=== PATIENT | female | born 1965 | race Caucasian/White ===

== ENCOUNTER 2019-06-16 00:18 | Inpatient (IN) | payer MEDICARE, OTHER ==
[2019-06-16] MEDS ORDERED: HYDROcodone/Acetaminophen 5/325 mg Tablet PO PRN (01:57)
[2019-06-16] MEDS ORDERED: Acetaminophen 325 MG TAB PO PRN (01:57)
[2019-06-16] MEDS ORDERED: Ondansetron PF 4 MG/2 ML Vial IVP PRN (01:57)
[2019-06-16] MEDS ORDERED: Sodium Chloride 0.9% 1,000 ML IV SCH (02:00)
[2019-06-16] MEDS ORDERED: Morphine 2 MG/ML SYRINGE SLOW IVP PRN (02:01)
[2019-06-16] MEDS ORDERED: Promethazine HCl 25 MG/ML VIAL IM PRN (02:02)
[2019-06-16 02:27] LABS: #Basophils 0.1 thou/uL (0.0-0.2); #Eosinphils 0.2 thou/uL (0.0-0.7); #Lymphocytes 3.6 thou/uL (1.20-3.40); #Monocytes 0.7 thou/uL (0.11-0.59); #Neutrophils 3.4 thou/uL (1.40-6.50); %Basophils 1.2 % (0.0-1.0); %Eosinophils 2.2 % (0.0-10.0); %Lymphocytes 45.5 % (21.0-51.0); %Monocytes 8.3 % (0.0-10.0); %Neutrophils 42.8 % (42.0-75.0); Hemoglobin 15.2 g/dL (12.0-16.0); Mean Corpuscular HGB CONC 34.1 g/dL (32.0-36.0); Mean Corpuscular Hemoglobin 31.9 pg (27.0-31.0); Mean Corpuscular Volume 93.6 fL (78.0-98.0); Mean Platelet Volume 7.3 fL (7.4-10.4); Platelet Count 257 thou/uL (130-400); RBC Distribution Width 12.7 % (11.5-14.5); Red Blood Cell (RBC) Count 4.77 mill/uL (4.20-5.40)
[2019-06-16] MEDS ORDERED: hydrALAZINE 20 MG/ML VIAL SLOW IVP PRN (02:29)
[2019-06-16 02:30] LABS: PTT 34.4 SEC (22.9-36.1); Prothrombin Time 12.8 SEC (12.0-14.7)
[2019-06-16] MEDS ORDERED: Labetalol HCl 100 MG/20 ML VIAL SLOW IVP PRN (02:30)
[2019-06-16 02:41] LABS: Anion Gap 12 mmol/L (10-20); BUN (Urea Nitrogen) 11 mg/dL (9.8-20.1); Calc. Creatinine Clearance 0 mL/min (70-130); Calcium 9.6 mg/dL (7.8-10.44); Carbon Dioxide 28 mmol/L (22-29); Chloride 99 mmol/L (98-107); Estimated GFR-MDRD 71; Glucose 84 mg/dL (70-105); Potassium 4.1 mmol/L (3.5-5.1); Sodium 135 mmol/L (136-145)
--- NOTE | 2019-06-16 02:49 | HP ---
HISTORY OF PRESENT ILLNESS: The patient is a 53-year-old female with a past medical history of hypertension, hyperlipidemia, chronic back pain, followed by Dr. Lee for a 4-mm right MCA bifurcation aneurysm. She was last seen by our service in January 2018 for evaluation of this aneurysm. This had been stable on prior scans in 2017 and 2018. Unfortunately, the patient did not follow up in 2019 due to insurance and social issues. The patient reports that she has a chronic history of migraines as well and she developed gradual onset headache this afternoon associated with nausea, vomiting, left eye visual changes, and left-sided weakness. She presented to [facility] for further evaluation of these symptoms. CTA was done in their emergency department, which was notable for a stable 4-mm right MCA aneurysm. However, there is a new small saccular aneurysm involving the left distal ACOM as well as vascular malformation in the left [employer] distribution concerning for AVM. The patient was transferred to [facility] for further evaluation and management of these new findings. I visited with the patient in the ED. She is reporting she is feeling much better and had improvement in her overall headache, left eye vision changes, and left-sided weakness. She still has some present, but appear to be slightly better at this time. Her labs done at [facility] are otherwise unremarkable, CBC, CMP as well and coags. Her blood pressure here in the emergency department is riding around systolic 120. She was treated with Percocet prior to arrival for headache, as well as given Zofran for her nausea. PAST MEDICAL HISTORY: Right 4 mm MCA bifurcation aneurysm, chronic neck and back pain, anxiety, depression, hypertension, hyperlipidemia, migraine headaches. PAST SURGICAL HISTORY: Appendectomy and tubal ligation. SOCIAL HISTORY: The patient is a smoker. She does not drink or use any drugs. CURRENT MEDICATION LIST: 1. Atorvastatin. 2. Clonidine. 3. Gabapentin. 4. Klonopin. 5. Lisinopril. 6. Prozac. 7. Tizanidine. 8. Tramadol. REVIEW OF SYSTEMS: Per HPI. PHYSICAL EXAMINATION: GENERAL: The patient is sitting in the bed in the ER, in no acute distress. VITAL SIGNS: Blood pressure is 124/66. The patient is 97% on room air. Heart rate is 78. HEENT: Normocephalic, atraumatic. Eyes, PERRLA, extraocular movements are intact. No evidence of visual field deficit at this time. ENT, nose is normal. Mucosa, pink, moist, intact. She has normal voice. NECK: Nontender to palpation. Free active range of motion. No meningismus or nuchal rigidity. CARDIAC: Regular rate and rhythm. RESPIRATORY: Symmetric chest expansion. No evidence of dyspnea. MUSCULOSKELETAL: On the right side, she has free active range of motion of the right upper and right lower extremities. She has 5/5 strength in the right upper and right lower extremities. In the left, she has slightly decreased strength throughout the left upper extremity, 4-/5 and also in the left lower extremity, 4-/5 with some drift. NEUROLOGIC: A and O x4. Left-sided weakness as above. 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 Considering her new and worsening symptoms and neurologic deficit as well as changes on her imaging, we will plan to monitor closely in the ICU with q.1 neuro checks. I will make her n.p.o. for possible need for diagnostic angiogram. At this time, her blood pressure appears to be controlled well, but considering her history of hypertension, we will ask the hospitalist to assist with any medical management. I have discussed this plan with Dr. Cedillo who is in agreement. We will also notify Dr. Lee's service. Job ID: [id number]
[2019-06-16] MEDS ORDERED: Morphine 2 MG/ML SYRINGE ONE (03:12)
[2019-06-16 04:54] VITALS: BMI 23.1
[2019-06-16] MEDS ORDERED: traMADol HCl 50 MG TAB PO PRN (09:22)
--- NOTE | 2019-06-16 11:16 | CON ---
DATE OF CONSULTATION: 06/16/2019 CONSULTING PHYSICIAN: Neurosurgeon. REASON FOR CONSULTATION: [employer] management. HISTORY OF PRESENT ILLNESS: This is a 53-year-old female, who presented to the [facility] yesterday with a headache. She has had a weakness in her left leg. Yesterday, she had some nausea and vomiting, that has dissipated. She has a history of a cerebral aneurysm. I think she was found to have a new one yesterday. PAST MEDICAL HISTORY: Hypertension, cerebral aneurysms, depression, anxiety, and hyperlipidemia. PAST SURGICAL HISTORY: Appendectomy and tubal ligation. SOCIAL HISTORY: Rolls her own cigarettes. Does not use any illicit drugs. Does not use alcohol. MEDICATIONS: Prior to admission; 1. Atorvastatin. 2. Clonidine. 3. Gabapentin. 4. Klonopin. 5. Lisinopril. 6. Prozac. 7. Tizanidine. 8. Tramadol. REVIEW OF SYSTEMS: Twelve-point review of systems is otherwise negative. PHYSICAL EXAMINATION: VITAL SIGNS: Temperature 98.3, pulse 70, blood pressure 119/84, O2 saturations 95%, and respiratory rate 26. GENERAL: She is awake, alert, no distress. HEENT: Pupils react. Sclerae are icteric. Oropharynx clear. NECK: No adenopathy or JVD. CHEST: Clear to auscultation. CARDIAC: S1 and S2. Regular. ABDOMEN: Soft and nontender. EXTREMITIES: No clubbing, cyanosis, or edema. NEUROLOGIC: She has a weak left leg. LABORATORY DATA: White blood cell count 8, hematocrit 44.7, and platelet count 257. INR 1.0. Sodium 135, BUN 11, creatinine 0.8, and glucose 84. ASSESSMENT: 1. Cerebral aneurysm. 2. History of hypertension. PLAN: Probably need to go ahead and restart her outpatient medications. Further disposition per Neurosurgery. Job ID: [id number]
[2019-06-16 11:54] VITALS: BP 140/81
[2019-06-16 12:38] VITALS: TEMP 98
[2019-06-16] MEDS ORDERED: Gabapentin 300 MG CAP PO SCH (15:00)
--- NOTE | 2019-06-16 18:03 | PRG ---
DATE OF SERVICE: 06/16/2019 SUBJECTIVE: The patient was seen and examined. I agree with Omayra Whitman's evaluation on 06/16/2019. The patient is a 53-year-old woman with a history of an unruptured right middle cerebral artery aneurysm and a history of chronic migraines. She had a recent episode consistent with her migraine history with severe headache, nausea, and vomiting and even some transient left-sided weakness that is improving. She has not been able to treat her migraines aggressively as an outpatient. A CTA was done in [place]. It again revealed the unruptured right middle cerebral artery aneurysm, but was also suggestive of a possible Acom aneurysm and possible left occipital vascular malformation. The imaging is not terribly conclusive in this regard in my opinion. There is no evidence of intracranial hemorrhage. IMPRESSION AND PLAN: The patient is currently suffering from what seems to be a typical migraine episode. We will treat this symptomatically and mobilize her to dismissal. As an outpatient, we will follow up on these imaging findings with an MRI, MRA of the brain. Following this, she may require diagnostic angiography. Job ID: [id number]
--- NOTE | 2019-06-16 19:20 | PDOC.HOSPP ---
- Subjective Encounter Date: 06/16/19 Encounter Time: 09:30 Subjective: Patient seen and examined for med mngt. Headache improving. Still has some weakness in L foot. No CP or SOB. No new complaints. - Objective Vital Signs & Weight: Vital Signs (12 hours) Temp Pulse Pulse BP BP Pulse Ox 06/16/19 12:00 98 F 06/16/19 10:50 68 70 140/81 144/81 H 06/16/19 08:00 95 Weight Weight 138 lb 12.8 oz Most Recent Monitor Data Heart Rate from ECG 71 NIBP 144/81 NIBP BP-Mean 102 Respiration from ECG 23 SpO2 98 I&O: 06/15/19 06/16/19 06/17/19 06:59 06:59 06:59 Intake Total 163 500 Output Total 0 Balance 163 500 Result Diagrams: 06/16/19 02:14 06/16/19 02:14 EKG Reviewed by me: Yes (Tele SR) Hospitalist ROS - Review of Systems Respiratory: denies: cough, dry, shortness of breath, hemoptysis, SOB with excertion, pleuritic pain, sputum, wheezing, other Cardiovascular: denies: chest pain, palpitations, orthopnea, paroxysmal noc. dyspnea, edema, light headedness, other Gastrointestinal: denies: nausea, vomiting, abdominal pain, diarrhea, constipation, melena, hematochezia, other - Exam General Appearance: NAD Neck: supple, no JVD Heart: RRR, no gallops Respiratory: CTAB, no wheezes, no rales Gastrointestinal: soft, non-distended Extremities: no edema Neurological: no new deficit Psychiatric: normal affect, A&O x 3 Hosp A/P (1) HTN (hypertension) Code(s): I10 - ESSENTIAL (PRIMARY) HYPERTENSION Status: Chronic (2) HLD (hyperlipidemia) Code(s): E78.5 - HYPERLIPIDEMIA, UNSPECIFIED Status: Chronic (3) COPD (chronic obstructive pulmonary disease) Status: Chronic (4) Anxiety Code(s): F41.9 - ANXIETY DISORDER, UNSPECIFIED Status: Chronic - Plan DVT proph w/SCDs Cont Lisinopril/Clonidine Cont Statins Cont Klonopin and Prozac Will follow.
[2019-06-16] MEDS ORDERED: tiZANidine HCl 4 MG TAB PO SCH (21:00)
[2019-06-16] MEDS ORDERED: cloNIDine 0.1 MG TAB PO SCH (21:00)
[2019-06-17] MEDS ORDERED: clonazePAM 0.5 MG TAB PO SCH (09:00)
[2019-06-17] MEDS ORDERED: FLUoxetine HCl 10 MG CAP PO SCH (09:00)
[2019-06-17] MEDS ORDERED: Lisinopril 10 MG TAB PO SCH (09:00)
[2019-06-17] MEDS ORDERED: Atorvastatin Calcium 10 MG TAB PO SCH (09:00)
== END 2019-06-16 14:25 | disposition home or self-care (01) | DRG 103 ==
LOC: ERS 00:18 → CCU 01:57
PROVIDERS: ADMIT Neurological Surgery; ATTEND Neurological Surgery
DX: G43.909 Migraine, unspecified, not intractable, without status migrainosus (principal); I67.1 Cerebral aneurysm, nonruptured; I10 Essential (primary) hypertension; J44.9 Chronic obstructive pulmonary disease, unspecified; E78.5 Hyperlipidemia, unspecified; F32.9 Major depressive disorder, single episode, unspecified; F41.9 Anxiety disorder, unspecified; F17.210 Nicotine dependence, cigarettes, uncomplicated; R53.1 Weakness; Z90.49 Acquired absence of other specified parts of digestive tract; Z90.710 Acquired absence of both cervix and uterus; Z88.2 Allergy status to sulfonamides; Z79.899 Other long term (current) drug therapy; Z98.51 Tubal ligation status
CPT/HCPCS: 36415; 80048; 85025; 85610; 85730; 96374; J2270